=== PATIENT | male | born 1955 | race Caucasian/White ===

== ENCOUNTER 2022-03-05 11:45 | Outpatient (CLI) | payer OTHER, SELFPAY ==
[2022-03-05 13:21] LABS: Albumin* 4.1 g/dL (3.3-5.0)
[2022-03-05 13:22] LABS: Chloride* 108 mmol/L (96-114); Potassium* 4.6 mmol/L (3.6-5.1); Sodium* 139 mmol/L (135-149)
[2022-03-05 13:24] LABS: Cholesterol* 140 mg/dL (90-199); Estimated Glomerular Filt Rate 84 ml/min
[2022-03-05 13:25] LABS: Alanine Aminotransferase* 24 U/L (4-50); Alkaline Phosphatase* 106 U/L (40-150); Aspartate Amino Transferase* 30 U/L (12-35); Bilirubin Total* 1.2 mg/dL (0.1-1.5); Blood Urea Nitrogen* 16 mg/dL (7-30); Calcium* 9.2 mg/dL (8.4-10.6); Carbon Dioxide* 27 mmol/L (20-32); Glucose* 96 mg/dL (60-115); Total Protein* 6.9 g/dL (6.0-8.3); Triglycerides* 87 mg/dL (40-149)
[2022-03-05 13:26] LABS: HDL Cholesterol* 48 mg/dL (>=40); LDL Cholesterol Calculated 75 mg/dL (<100)
[2022-03-05 13:50] LABS: PSA Screen* 0.99 ng/mL (0.10-4.00)
== END 2022-03-05 11:46 | disposition home or self-care (01) ==
PROVIDERS: PCP Family Medicine; Visit Provider Family Medicine
DX: Z00.00 Encounter for general adult medical examination without abnormal findings (principal); Z13.6 Encounter for screening for cardiovascular disorders; Z12.5 Encounter for screening for malignant neoplasm of prostate
CPT/HCPCS: 80053; 80061; 84153

== ENCOUNTER 2022-06-25 07:45 | Outpatient (CLI) | payer OTHER, SELFPAY ==
--- NOTE | 2022-06-25 08:00 | CRLHL7_ITS ---
For Patients: As a result of the Century Cures Act, medical imaging exams and procedure reports are released immediately into your electronic medical record. You may view this report before your referring provider. If you have questions, please contact your health care provider. Indication: COUGH, BRONCHITIS Technique: Post contrast CT chest. 75 cc Isovue 370 intravenous contrast. Please note that all CT scans at this facility use dose modulation, iterative reconstruction, and/or weight-based dosing when appropriate to reduce radiation dose to as low as reasonably achievable. Comparison: Chest x-ray 06/16/2022 Findings: The visualized thyroid is normal. No adenopathy is present. A large hiatal hernia is present measuring 12.8 x 7.6 cm. Adrenal glands normal. No calcified stones in the visualized gallbladder. Simple cyst posterior segment right hepatic lobe measuring 8 millimeters. Mild vascular calcifications in the coronary arteries. There is a perifissural nodule right anterior lung measuring 7 millimeters, 3/52. Patchy parenchymal densities with air bronchograms located within the left lower lobe. No pleural effusion or pulmonary edema. No pneumothorax. No fracture. Impression: Large hiatal hernia measuring 12.8 x 7.6 cm. Adjacent parenchymal densities within the left lower lobe may represent atelectasis or infiltrate. Perifissural nodule right anterior lung measuring 7 millimeters. Follow-up chest CT 1 year suggested. Incidental subcentimeter cyst within the right hepatic lobe. Please note that all CT scans at this facility use dose modulation, iterative reconstruction, and/or weight-based dosing when appropriate to reduce radiation dose to as low as reasonably achievable. Dictated by Fadi Zhang MD @ 06/26/2022 12:15:15 PM (Electronically Signed)
[2022-06-25 08:18] LABS: Creatinine* 0.9 mg/dL (0.5-1.5); Estimated Glomerular Filt Rate 95 ml/min
== END 2022-06-25 07:46 | disposition home or self-care (01) ==
LOC: CT 07:46
PROVIDERS: PCP Family Medicine; Visit Provider Family Medicine
DX: J40 Bronchitis, not specified as acute or chronic (principal); R05.9 Cough, unspecified; K44.9 Diaphragmatic hernia without obstruction or gangrene; R91.8 Other nonspecific abnormal finding of lung field; K76.89 Other specified diseases of liver
CPT/HCPCS: 36415; 71260; 82565; Q9967

== ENCOUNTER 2023-01-12 08:00 | Outpatient (RCR) | payer OTHER, SELFPAY ==
--- NOTE | 2023-01-05 09:06 | PT.OPDN ---
PT [place] [facility] Daily Note PT [facility] Out[facility] Daily Note Start: 12/15/22 07:59 Freq: Status: Active Protocol: Document 01/05/23 07:57 CJT (Rec: 01/05/23 09:05 CJT [id number]) E-signed By Doug Long, PT PT OP Daily Progress Note Visit Information Note Type Daily Note Visit Number 6 Insurance Authorized Visits 30 Physician Authorized Visits eval and treat Insurance Information Recert Due Date 03/15/23 Insurance Name [facility] Medical Diagnosis M25.561 - R knee pain Treating Diagnosis M25.561 - R knee pain Referring Zoran Hillman MD Subjective Subjective Pt continues to note gradual onset of pain in knees daily. 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 Is also having a hard time fitting his band around his knees. Pt also notes that he has been experiencing pain into his big toe on R at times. Pain Comments 0-6/10 Preferred Name Jay Jay Home Exercise Home Exercise Comments [id number] Objective Other/Pertinent Objective R Hip ROM: ER: 15 degrees IR: 0 degrees R knee ROM - 5-120 L knee ROM - 0-127 R Hip Strength Flexion - 4/5 MMT Abduction - 5/5 MMT Adduction - 5/5 MMT IR - 5/5 MMT ER - 5/5 MMT Extension - 3+/5 MMT L Hip Strength Flexion - 5/5 MMT Abduction - 4+/5 MMT Adduction - 5/5 MMT IR - 4+/5 MMT ER - 4+/5 MMT Extension - 4+/5 MMT R knee Extension - 5/5 MMT R Knee Flexion - 5/5 MMT L knee Extension - 5/5 MMT L knee Flexion - 5/5 MMT SLR: negative Slump: negative Scour: positive R PIERCE: positive R FADIR: positive R Patient Instructed in Risks/Benefits Yes Therapeutic Exercise Therapeutic Exercise Minutes (minutes) 45 Therapeutic Exercise: To Restore Clamshells with RTB 2 x 20 ea Functional Status SLR x 20 ea Hip adduction isometrics in hooklying 2 x 10, 5 hold Hip flexion with band around feet x 10 ea Hip abduction with band around feet x 10 ea Hip extension with band around feet x 10 ea Treatment Minutes Timed Code Treatment Minutes 45 Total Treatment Time 45 Billing Units Therapeutic Exercise Units 3 Assessment/Impression Assessment/Impression Jay Jay has seen some progress in his knee pain during his time in therapy. His intense pain that he was experiencing is now gone but he continues to experience a dull ache in the knee daily. I do feel this is likely related to arthritis. Because of his lack of progress, we took a closer look at his R hip. His R hip ROM is severely limited and all special testing for the hip is positive this date for pain about the hip. Given that he has a history of [place] on L, it would not surprise me if he does have some arthritis in his R hip that is contributing to his knee pain. If Jay Jay's pain in his knee continues through his fourth week of therapy I would recommend x-rays of the R hip to see if this could be a contributing factor. Plan of Care Physical Therapy Goals STG - To be completed in 2-3 weeks: 1. Pt will report reduction in R knee pain by factor of 2 with all ADLs so that he may go about his work day with manageable level of pain. 2. Pt will demo 5/5 MMT for R knee extension strength to provide greater stability to R knee with all activities. MET LTG - To be completed in 4-6 weeks: 1. Pt to be I with HEP so that he may I manage progression of symptoms. 2. Pt will demo at least 0-125 degrees R knee AROM as indication of improved mobility and to reduce strain on R knee with activities including stairs, and tying his shoes. 3. Pt will demo 5/5 MMT for all LE motions B to provide greater support to B knees with activity. Daily Plan of Care Continue per POC
== END 2023-04-06 10:15 | disposition home or self-care (01) ==
PROVIDERS: PCP Family Medicine; Visit Provider Family Medicine
DX: M25.561 Pain in right knee (principal); Z51.89 Encounter for other specified aftercare
CPT/HCPCS: 97035; 97110; 97140; 97161

== ENCOUNTER 2023-03-09 13:46 | Outpatient (CLI) | payer OTHER, SELFPAY ==
[2023-03-09] MEDS: PERFLUTREN LIPID MICROSPHERES 2 ML VIAL IV (14:49)
[2023-03-09 14:58] VITALS: BP 152/82; PULSE 88; RESP 16
--- NOTE | 2023-03-09 15:27 | W.PM.STED ---
Stress Test Note Date Date Seen: 03/09/23 Date of test: 03/09/23 Providers Primary care provider: Zoran Mckeon Stress test physician: Tierney Meadows Stress Test Note Stress test ordered: Stress Echo Indication for test: Abnormal calcium CT score Stress test medicine: Definity Results discussion: Resting EKG: Normal sinus rhythm, rate 66 beats per minute. There is some artifact but overall no concerning change in the baseline EKG Resting blood pressure: 132/82 Stress test: Patient was exercise following treadmill exercise standard Emmanuel protocol. Patient exercise for 7 minutes 2 seconds, achieving a 0.5 Mets. He was experiencing some exercise limitations and some EKG changes with ST segment depression were noted on the monitoring. He exercised to equivalent of a 0.5 Mets. He did achieve a maximum heart rate of 137 beats per minute which was 104% of a calculated target heart rate of 131. He had a maximal blood pressure systolic 154. Had a rate pressure product of 19,558. Patient had no chest discomfort or symptoms indicative of active coronary artery disease during the test. He did have flat ST segment depression that was most evident lead for V5 V6 in in the inferior lead V2. Nonspecific flat ST segment to downsloping in 3 and AVF. Potentially some AVR segment elevation. Echo images are pending to couple this for a full formal diagnostic. Patient was asymptomatic the whole time. Patient did reports that he had a prior stress tests, was wondering if it could be compared. I did look up in the old EMR, did have a stress echo on 03/06/2010. He did have [address] depression in 2 3 and AVF, 3 mm in V3 through V6, reported to normalize in recovery. This certainly would be similar to the same pattern that I am seeing today although maybe not as prominent today. Impression: Subjectively negative, objectively positive EKG portion of this stress echo: Patient was discharged in stable condition. Echo images will be sent Cardiology to couple for full formal diagnostic. We have reviewed the EKGs in-depth, did reassure him that EKG stress test changes alone can have a higher false-positive rate. Thus, we couple it with the echo. Regardless of this stress test, patient is encouraged at any point with chest pain or chest symptoms that are concerning for coronary ischemia or heart attack to seek emergent evaluation. Follow up suggested: Await echo images to couple this for a full formal diagnostic. I do suspect that this is a patient that may have false-positive EKG changes.
== END 2023-03-09 15:04 | disposition home or self-care (01) ==
LOC: STRESS 13:46
PROVIDERS: PCP Family Medicine; Visit Provider Family Medicine
DX: I25.10 Atherosclerotic heart disease of native coronary artery without angina pectoris (principal); R07.9 Chest pain, unspecified
CPT/HCPCS: 93016; 93325; 93351; Q9957

== ENCOUNTER 2023-03-12 12:51 | Outpatient (CLI) | payer OTHER, SELFPAY ==
--- NOTE | 2023-03-12 13:00 | CRLHL7_ITS ---
For Patients: As a result of the Century Cures Act, medical imaging exams and procedure reports are released immediately into your electronic medical record. You may view this report before your referring provider. If you have questions, please contact your health care provider. INDICATION: COMPARISON: none TECHNIQUE: Real time griffin scale imaging and color Doppler analysis was performed of the right upper quadrant. FINDINGS: 9 x 7 x 9 millimeter cyst is present within the right hepatic lobe. Mildly increased hepatic echotexture noted. The liver measures 16.1 cm. There is a normal appearance of the hepatic IVC and proximal abdominal aorta. There is no evidence of ascites. The gallbladder is of normal size and there is no evidence of intraluminal stones or sludge. The gallbladder wall measures 1.7 mm in thickness. The common bile duct is of normal size and measures 5.6 mm in diameter at the level of the liam hepatis. The pancreas is not well-visualized. There is no evidence of a stone or hydronephrosis within the right kidney. The right kidney measures 12.1 cm in length. IMPRESSION: Mild diffuse hepatic steatosis with incidental subcentimeter intrahepatic cyst. No ascites or suspicious intrahepatic mass. Normal gallbladder. Dictated by Fadi Zhang MD @ 03/12/2023 2:12:22 PM (Electronically Signed)
== END 2023-03-12 12:52 | disposition home or self-care (01) ==
LOC: US 12:51
PROVIDERS: PCP Family Medicine; Visit Provider Family Medicine
DX: K76.9 Liver disease, unspecified (principal); K76.0 Fatty (change of) liver, not elsewhere classified; K76.89 Other specified diseases of liver
CPT/HCPCS: 76705

== ENCOUNTER 2023-03-22 08:24 | Outpatient (CLI) | payer OTHER, SELFPAY | END 2023-03-22 08:25 | disposition home or self-care (01) | LOC: NFLDREF 03-24 07:00 | PROVIDERS: PCP Family Medicine; Referring Provider Family Medicine; Visit Provider Family Medicine | DX: E78.5 Hyperlipidemia, unspecified (principal); I10 Essential (primary) hypertension; Z12.5 Encounter for screening for malignant neoplasm of prostate | CPT/HCPCS: 80053; 80061; G0103 ==

== ENCOUNTER 2023-06-16 08:53 | Outpatient (CLI) | payer OTHER, SELFPAY | END 2023-06-16 08:54 | disposition home or self-care (01) | LOC: NFLDREF 06-17 06:29 | PROVIDERS: PCP Family Medicine; Referring Provider Family Medicine; Visit Provider Family Medicine | DX: E78.00 Pure hypercholesterolemia, unspecified (principal); I25.10 Atherosclerotic heart disease of native coronary artery without angina pectoris | CPT/HCPCS: 80061; 80076 ==

== ENCOUNTER 2023-09-09 08:00 | Outpatient (RCR) | payer OTHER, SELFPAY ==
--- NOTE | 2023-09-09 12:19 | PT.OPDN ---
PT [place] [facility] Daily Note PT [place] Outpatient Daily Note Start: 07/12/23 15:00 Freq: Status: Active Protocol: Document 09/09/23 07:53 CJT (Rec: 09/09/23 08:42 CJT [id number]) E-signed By Doug Long, PT PT OP Daily Progress Note Visit Information Note Type Daily Note Visit Number 4 Insurance Authorized Visits 30 Physician Authorized Visits eval and treat Insurance Information Recert Due Date 10/11/23 Insurance Name [facility] Medical Diagnosis M54.4 - dorsalgia R29.3 - abnormal posture Treating Diagnosis M54.2 - cervicalgia M54.5 - low back pain Referring Zoran Hillman MD Subjective Subjective Pt reports his HEP is going well and he feels he is seeing improvement. Still experiencing stiffness and pain in his back after long periods of sitting. Also complains of pain and pressure behind his R knee when he kneels. Preferred Name Jay Jay Home Exercise Home Exercise Comments [id number] Objective Other/Pertinent Objective Cervical ROM Extension - 34 Flexion - 56 R/L Side Bend - 17/17 R/L Rotation - 52/52 Lumbar ROM Extension - 0 Flexion - can reach just past B patellar tendons R/L Side Bend - max limitations noted R/L Rotation - max limitations noted R Hip ROM Flexion - 110 IR/ER - 10/10 Extension - -5 L Hip ROM Flexion - 80 IR/ER - 15/15 Extension - -5 R knee ROM - 0-8-120 L knee ROM - 0-5-120 R knee Extension - 5/5 MMT R Knee Flexion - 5/5 MMT L knee Extension - 5/5 MMT L knee Flexion - 5/5 MMT Gait: forward trunk lean, lack of full hip and knee extension at all times Special testing: all testing for disc herniation, radiculopathy negative at this time. Patient Instructed in Risks/Benefits Yes Therapeutic Exercise Therapeutic Exercise Minutes (minutes) 50 Therapeutic Exercise: To Restore Access Code: [email or web address] Functional Status URL: [email or web address] Progression/ Date: 09/09/2023 Prepared by: Doug Long Exercises - Supine Lower Trunk Rotation - 1-2 x daily - 7 x weekly - 1 sets - 10 reps - Sidelying Thoracic Rotation with Open Book - 1-2 x daily - 7 x weekly - 1 sets - 10 reps - Cat Cow - 1-2 x daily - 7 x weekly - 1 sets - 10 reps - Standing Forward Trunk Flexion - 2-3 x daily - 7 x weekly - 5-10 reps - 30-60 seconds hold - Seated Passive Knee Extension - 1 x daily - 7 x weekly - 1 sets - 5-10 minutes hold - Bird Dog - 1 x daily - 7 x weekly - 2 sets - 10 reps - 5 seconds hold - Bug with [place] Ball - 1 x daily - 7 x weekly - 3 sets - 10 reps - Bridge with Heels on [place] Ball - 1 x daily - 7 x weekly - 3 sets - 10 reps - Standing 'L' Stretch at Counter - 1 x daily - 7 x weekly - 30-60 seconds hold - Seated Cervical Retraction - 3 x daily - 7 x weekly - 1 sets - 10 reps - 3-5 seconds hold - Supine Cervical Rotation PROM - 1 x daily - 7 x weekly - 1 sets - 10 reps - 3-5 seconds hold - Doorway Pec Stretch at 90 Degrees Abduction - 2 x daily - 7 x weekly - 1 sets - 45-60 seconds hold Treatment Minutes Timed Code Treatment Minutes 50 Total Treatment Time 50 Billing Units Therapeutic Exercise Units 3 Assessment/Impression Assessment/Impression Jay Jay has seen fair progress in his symptoms thus far and would like to pause therapy session for the time being. Jay Jay has complained of a pain behind his knee that he describes as a small ball behind his knee that feels like is building with pressure when he is kneeling and playing with his grandchildren . While I was not able to palpate a Cuenca's cyst, I do suspect that this is what he is dealing with. Given his history with the R knee and his bout of physical therapy last year for his knee, I would recommend MRI of the R knee to evaluate the physical condition of this joint. I do think he would be a good candidate for a knee replacement if his pain continues to increase. In regard to his spine, Jay Jay is happy with his progress and I do think he will see limited progress due to the level of stiffness and lack of mobility in his spine. I do feel that the exercises in his HEP will continue to be beneficial for him to continue to perform moving forward. Pt would like his chart to be held 30 days in case of need for additional therapy services. If pt does not return during that time, this note will serve as his discharge note. Plan of Care Physical Therapy Goals STG - To be completed in 2-3 weeks: 1. Pt will report reduction in back pain by factor of 2 so that they may perform all ADLs with tolerable level of pain. 2. Pt will demonstrate ability to bend forward and reach mid -rosenthal as indication of improve lumbar and hip flexion. 3. Pt will report consistent performance of HEP so that he may indicate which exercises he is enjoying and feels are most beneficial to him. MET LTG - To be completed in 8-12 weeks: 1. Pt to be I with HEP so that they may I manage progression of symptoms. 2. Pt will report ability to stand from chair at work without pain in his low back so that he may perform this transfer without pain. 3. Pt will demo improved static posture in sitting and standing to reduce straining and compressive forces in pts spine. Daily Plan of Care Continue per POC
== END 2023-12-06 08:51 | disposition home or self-care (01) ==
PROVIDERS: PCP Family Medicine; Visit Provider Family Medicine
DX: M54.9 Dorsalgia, unspecified (principal); R29.3 Abnormal posture; Z51.89 Encounter for other specified aftercare
CPT/HCPCS: 97110; 97140; 97161

== ENCOUNTER 2023-09-20 08:15 | Outpatient (CLI) | payer OTHER, SELFPAY | END 2023-09-20 08:16 | disposition home or self-care (01) | LOC: NFLDREF 23:20 | PROVIDERS: PCP Family Medicine; Referring Provider Family Medicine; Visit Provider Family Medicine | DX: E78.00 Pure hypercholesterolemia, unspecified (principal) | CPT/HCPCS: 80061; 80076 ==

== ENCOUNTER 2023-09-29 14:28 | Outpatient (CLI) | payer OTHER, SELFPAY ==
--- NOTE | 2023-09-29 14:45 | CRLHL7_ITS ---
For Patients: As a result of the Century Cures Act, medical imaging exams and procedure reports are released immediately into your electronic medical record. You may view this report before your referring provider. If you have questions, please contact your health care provider. INDICATION: Pain in left leg. COMPARISON: Left lower extremity venous ultrasound 11/22/2017. TECHNIQUE: A compression venous ultrasound exam was performed of the left lower extremity using griffin-scale imaging, color Doppler, and spectral Doppler analysis. FINDINGS: Sonographic imaging of the left lower extremity demonstrates normal compressibility and color Doppler venous blood flow within the common femoral, femoral, deep femoral, and proximal greater saphenous veins. At a lower level the popliteal, peroneal, and posterior tibial veins also show normal compressibility and color Doppler venous blood flow. Limited imaging of the contralateral groin demonstrates a normal spectral waveform and color Doppler venous blood flow within the right common femoral vein. IMPRESSION: Negative for acute DVT in the left lower extremity. Dictated by Nichelle Akins MD @ 09/30/2023 2:48:16 AM (Electronically Signed)
== END 2023-09-29 14:29 | disposition home or self-care (01) ==
LOC: US 14:29
PROVIDERS: PCP Family Medicine; Visit Provider Family Medicine
DX: M79.662 Pain in left lower leg (principal)
CPT/HCPCS: 93971

== ENCOUNTER 2023-10-14 10:06 | Outpatient (CLI) | payer OTHER, SELFPAY ==
--- NOTE | 2023-10-14 10:15 | CRLHL7_ITS ---
For Patients: As a result of the Century Cures Act, medical imaging exams and procedure reports are released immediately into your electronic medical record. You may view this report before your referring provider. If you have questions, please contact your health care provider. EXAM: MRI OF THE RIGHT KNEE, WITHOUT CONTRAST CLINICAL INDICATION: Right knee pain. COMPARISON PLAIN FILMS: 12/11/2022. COMPARISON CROSS-SECTIONAL IMAGING STUDIES: None available at time of interpretation. TECHNICAL: Axial, sagittal and coronal T1, PD, PD FS and T2 FS images. Knee coil. FINDINGS: MEDIAL COMPARTMENT: Medial Meniscus: Tear of the posterior horn medial meniscus root attachment. Loss of hoop stress with peripheral extrusion the medial meniscus. 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 - LATERAL COMPARTMENT: Lateral Meniscus: Irregular tear in the posterior horn lateral meniscus root attachment and adjacent to free edge in the posterior horn of the lateral meniscus. Articular Cartilage: Moderate to high-grade chondromalacia centrally and posteriorly in the tibia (grade 3-4). Mild fissuring in the lateral femoral condyle (grade 2). - PATELLOFEMORAL COMPARTMENT: Articular Cartilage: Mild to moderate chondromalacia throughout the patellofemoral compartment (grade 2-3). Additional full-thickness fissuring in the lateral patellar facet articular cartilage (grade 4) with adjacent subchondral cystic change. - CRUCIATE LIGAMENTS: Anterior Cruciate Ligament: Normal. Posterior Cruciate Ligament: Ganglion cyst of the PCL. No PCL tear. - MEDIAL COLLATERAL LIGAMENT AND POSTEROMEDIAL CORNER COMPLEX: Medial Collateral Ligament: Normal. Medial Head of the Gastrocnemius and Semimembranosus Tendons: Normal. - LATERAL COLLATERAL LIGAMENT COMPLEX AND POSTEROLATERAL CORNER COMPLEX: Fibular Collateral Ligament: Normal. Distal Biceps Femoris Tendon Complex: Normal. Iliotibial Band: Normal. Popliteus Tendon: Normal. Posterolateral Corner Capsule: Normal. - EXTENSOR MECHANISM: Distal Quadriceps Tendon: Normal. Patellar Tendon: Normal. Medial Patellar Retinaculum and Medial Patellofemoral Ligament: Normal. Lateral Patellar Retinaculum: Normal. Normal patellar alignment. No patella aurea. Normal trochlear depth. Normal lateral trochlear inclination. - JOINT SPACE: Effusion: Small knee joint effusion. No popliteal cyst. Joint Bodies: None seen. - OSSEOUS STRUCTURES: Small intraosseous ganglion at the PCL insertion. Benign bone island in the tibial spine region and lateral femoral condyle. - PERIARTICULAR SOFT TISSUES: Periarticular Cysts or Ganglia: None. Bursae: No prepatellar, superficial infrapatellar, deep infrapatellar, pes anserinus or semimembranosus/MCL bursitis. Musculature: No muscle atrophy or muscle edema. Subcutaneous and Soft Tissues: No subcutaneous or soft tissue mass, edema or fluid collection. Neurovascular Structures: Normal. IMPRESSION: 1. Tear of the posterior horn medial meniscus root attachment with loss of hoop stress. 2. 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 3. Tear of the posterior horn and root attachment of the lateral meniscus. 4. Mild high-grade chondromalacia in the lateral compartment. 5. Mild to moderate diffuse chondromalacia in the patellofemoral compartment with focal area of full-thickness chondromalacia. 6. Ganglion cyst of the PCL. 7. Small knee joint effusion. Dictated by Carlo Kearney MD @ 10/15/2023 10:57:27 AM (Electronically Signed)
== END 2023-10-14 10:07 | disposition home or self-care (01) ==
LOC: MRI 10:07
PROVIDERS: PCP Family Medicine; Visit Provider Family Medicine
DX: M25.561 Pain in right knee (principal); S83.241A Other tear of medial meniscus, current injury, right knee, initial encounter; M94.261 Chondromalacia, right knee; M67.461 Ganglion, right knee; M25.461 Effusion, right knee
CPT/HCPCS: 73721

== ENCOUNTER 2024-02-28 08:36 | Outpatient (CLI) | payer OTHER, SELFPAY | END 2024-02-28 08:37 | disposition home or self-care (01) | LOC: NFLDREF 19:57 | PROVIDERS: PCP Family Medicine; Referring Provider Family Medicine; Visit Provider Family Medicine | DX: I25.10 Atherosclerotic heart disease of native coronary artery without angina pectoris (principal); E78.00 Pure hypercholesterolemia, unspecified; I10 Essential (primary) hypertension; Z12.5 Encounter for screening for malignant neoplasm of prostate | CPT/HCPCS: 80053; 80061; G0103 ==

== ENCOUNTER 2024-05-30 08:15 | Outpatient (CLI) | payer OTHER, SELFPAY ==
[2024-05-30] MEDS: SODIUM CHLORIDE 0.9 % (FLUSH) 10 ML SYRINGE IVF (10:35)
[2024-05-30] MEDS: REGADENOSON 0.4 MG/5 ML SYRINGE IVP (10:35)
[2024-05-30 10:48] VITALS: BP 148/82; PULSE 88; RESP 16
--- NOTE | 2024-05-30 11:41 | W.PM.STED ---
Stress Test Note Date Date Seen: 05/30/24 Date of test: 05/30/24 Providers Primary care provider: Zoran Mckeon Stress test physician: Berny Contreras Stress Test Note Stress test ordered: Lexiscan Indication for test: Chest pain with exertion Stress test medicine: Lexiscan Results discussion: This pleasant gentleman presents for the above test after discussion the risks benefits side effects he would like to proceed cardiac stress test minute ago history form is reviewed. Pretest EKG shows normal sinus rhythm, with a ventricular rate of 59, blood pressure 161/94. Standard Lexiscan protocol is employed over 5 minute., maximum was 111 with maximum target of 85% of this. Patient was asymptomatic, had no symptoms at all. Objectively no ST wave changes suggestive of ischemia, there was no dysrhythmias. Impression: Negative electrographic portion of Lexiscan, subjectively negative Follow up suggested: Await nuclear imaging results, these will be read jointly by Cardiology and nuclear Medicine, clinical correlation with this will be needed, patient left this testing facility in good condition, there were no complications.
== END 2024-05-30 10:51 | disposition home or self-care (01) ==
LOC: STRESS 08:16
PROVIDERS: PCP Family Medicine; Visit Provider Family Medicine
DX: R07.9 Chest pain, unspecified (principal); I25.10 Atherosclerotic heart disease of native coronary artery without angina pectoris
CPT/HCPCS: 78452; 93016; 93017; A9500; J2785

== ENCOUNTER 2025-02-28 08:49 | Outpatient (CLI) | payer OTHER, SELFPAY | END 2025-02-28 08:50 | disposition home or self-care (01) | LOC: NFLDREF 03-05 10:33 | PROVIDERS: PCP Family Medicine; Referring Provider Family Medicine; Visit Provider Family Medicine | DX: I25.10 Atherosclerotic heart disease of native coronary artery without angina pectoris (principal); E78.00 Pure hypercholesterolemia, unspecified | CPT/HCPCS: 80053; 80061; 83695; 86141; G0103 ==